=== PATIENT | female | born 1940 | race Caucasian/White ===

== ENCOUNTER 2017-07-17 18:00 | Observation (INO) | payer MEDICARE ==
[~2017-07-17] VITALS: Ht 170.2 cm; Wt 57.8 kg
[2017-07-17] MEDS ORDERED: SODIUM CHLORIDE FLUSH 10ML SYR IVF ONE (18:30)
[2017-07-17] MEDS ORDERED: MORPHINE SULFATE 4 MG/ML, 1ML IVPush PRN (18:30)
[2017-07-17 18:52] LABS: BASOPHILS # (AUTO) 0.07 x10^3/uL (0-0.1); BASOPHILS % (AUTO) 1 % (0-1); EOSINOPHILS # (AUTO) 0.18 x10^3/uL (0-0.4); EOSINOPHILS % (AUTO) 3 % (1-7); LYMPHOCYTES # (AUTO) 2.31 x10^3/uL (1-3.4); LYMPHOCYTES % (AUTO) 33 % (22-44); MD NO; MEAN CORPUSCULAR HEMOGLOBIN 28.7 pg (27.0-34.8); MEAN CORPUSCULAR HGB CONC 32.9 g/dL (32.4-35.8); MEAN CORPUSCULAR VOLUME 87.2 fL (80-100); MEAN PLATELET VOLUME 8.9 fL (7.4-10.4); MONOCYTES # (AUTO) 0.56 x10^3/uL (0.2-0.8); MONOCYTES % (AUTO) 8 % (2-9); NEUTROPHILS # (AUTO) 3.92 x10^3/uL (1.8-6.8); NEUTROPHILS % (AUTO) 56 % (42-75); PLATELET COUNT 406 x10^3/uL (130-400); RED BLOOD COUNT 4.64 x10^6/uL (3.82-5.3); RED CELL DISTRIBUTION WIDTH 15.9 % (9.6-15.2)
[2017-07-17] MEDS ORDERED: HEPARIN 1,000 UNITS/ML, 30ML ONE (19:00)
[2017-07-17] MEDS ORDERED: THROMBIN 20,000 UNIT VIAL TP ONE ×2 (19:00→20:21)
[2017-07-17 19:01] LABS: INTERNATIONAL NORMALIZED RATIO 0.94 (0.93-1.1); PROTHROMBIN TIME 9.8 Seconds (9.6-11.5)
[2017-07-17] MEDS ORDERED: EPINEPHRINE 1 MG/ML, 1ML ONE (19:01)
[2017-07-17] MEDS ORDERED: BUPIVACAINE/PF 0.5% ONE (19:01)
[2017-07-17] MEDS ORDERED: PAPAVERINE 30 MG/ML, 2ML ONE (19:01)
[2017-07-17] MEDS ORDERED: FENTANYL PF 250 MCG/5ML ONE (19:03)
[2017-07-17] MEDS ORDERED: MIDAZOLAM 1 MG/ML, 2ML ONE (19:03)
[2017-07-17 19:05] LABS: ALANINE AMINOTRANSFERASE 15 U/L (12-78); ALBUMIN 3.2 g/dL (3.4-5.0); ANION GAP 3 mmol/L (5-15); CALCIUM 8.5 mg/dL (8.5-10.1); CHLORIDE 109 mmol/L (98-107); CREATININE 1.45 mg/dL (0.55-1.02)
[2017-07-17 19:07] LABS: ALKALINE PHOSPHATASE 87 U/L (45-117); BILIRUBIN,TOTAL 0.5 mg/dL (0.2-1.0); TOTAL PROTEIN 8.3 g/dL (6.4-8.2)
[2017-07-17] MEDS ORDERED: BACITRACIN 50,000 UNIT ONE (19:21)
[2017-07-17] MEDS ORDERED: ONDANSETRON 2MG/ML, 2ML ONE (19:38)
[2017-07-17] MEDS ORDERED: CEFAZOLIN 1,000 MG ONE (19:38)
[2017-07-17] MEDS ORDERED: PROPOFOL 10 MG/ML, 20ML ONE (19:38)
[2017-07-17] MEDS ORDERED: ROCURONIUM 10 MG/ML,10ML ONE (19:38)
[2017-07-17] MEDS ORDERED: VISIPAQUE 270 MG/ML, 50ML BOTTLE IV ONE ×2 (19:40→20:46)
[2017-07-17] MEDS ORDERED: HEPARIN 1,000 UNITS/ML, 30ML IVPush ONE (20:26)
[2017-07-17] MEDS ORDERED: PROTAMINE SULFATE 10 MG/ML, 5ML ONE (21:50)
[2017-07-17] MEDS ORDERED: hydrALAzine 20 MG/ML, 1ML ONE (22:24)
[2017-07-17] MEDS ORDERED: OXYcodone 5 MG/5 ML ORAL.SOL UDC ONE (22:24)
[2017-07-17] MEDS ORDERED: LABETALOL 5MG/ML, 20ML ONE (22:24)
[2017-07-17] MEDS ORDERED: HYDROcodone/APAP 5/325 TABLET PO PRN (22:30)
[2017-07-17] MEDS ORDERED: ONDANSETRON 2MG/ML, 2ML IVPush PRN ×2 (22:30)
[2017-07-17] MEDS ORDERED: LABETALOL 5MG/ML, 20ML IV PRN (22:30)
[2017-07-17] MEDS ORDERED: FENTANYL PF 100 MCG/2ML IV PRN (22:30)
[2017-07-17] MEDS ORDERED: OXYcodone 5 MG/5 ML ORAL.SOL UDC PO PRN (22:30)
[2017-07-17] MEDS ORDERED: hydrALAzine 20 MG/ML, 1ML IV PRN (22:30)
[2017-07-17] MEDS ORDERED: morphine SULFATE 10 MG/ML, 1ML IV PRN (22:30)
[2017-07-17] MEDS ORDERED: MEPERIDINE/PF 50 MG/ML ONE (23:04)
[2017-07-17] MEDS ORDERED: MEPERIDINE/PF 25MG/0.5ML IVPush PRN (23:30)
[2017-07-17 23:55] VITALS: BP 133/76
[2017-07-18 00:36] VITALS: BP 133/76
[2017-07-18] MEDS: D5%-LR+KCL 20MEQ 1,000 ML IV SCH ×2 (01:25→10:30)
[2017-07-18 02:00] VITALS: BP 131/55
[2017-07-18] MEDS: CEFAZOLIN PMX 1GM/50ML 50 ML IVPB SCH ×2 (03:02→11:20)
[2017-07-18 05:37] LABS: BASOPHILS # (AUTO) 0.06 x10^3/uL (0-0.1); BASOPHILS % (AUTO) 1 % (0-1); EOSINOPHILS # (AUTO) 0.18 x10^3/uL (0-0.4); EOSINOPHILS % (AUTO) 3 % (1-7); LYMPHOCYTES # (AUTO) 1.52 x10^3/uL (1-3.4); LYMPHOCYTES % (AUTO) 22 % (22-44); MD NO; MEAN CORPUSCULAR HEMOGLOBIN 30.3 pg (27.0-34.8); MEAN CORPUSCULAR HGB CONC 33.8 g/dL (32.4-35.8); MEAN CORPUSCULAR VOLUME 89.6 fL (80-100); MEAN PLATELET VOLUME 9.4 fL (7.4-10.4); MONOCYTES # (AUTO) 0.69 x10^3/uL (0.2-0.8); MONOCYTES % (AUTO) 10 % (2-9); NEUTROPHILS # (AUTO) 4.37 x10^3/uL (1.8-6.8); NEUTROPHILS % (AUTO) 64 % (42-75); PLATELET COUNT 275 x10^3/uL (130-400); RED BLOOD COUNT 3.24 x10^6/uL (3.82-5.3); RED CELL DISTRIBUTION WIDTH 15.9 % (9.6-15.2)
[2017-07-18 05:55] LABS: ALBUMIN 2.2 g/dL (3.4-5.0); ANION GAP 4 mmol/L (5-15); CALCIUM 7.6 mg/dL (8.5-10.1); CHLORIDE 112 mmol/L (98-107)
[2017-07-18 05:57] LABS: CREATININE 1.21 mg/dL (0.55-1.02)
[2017-07-18] MEDS ORDERED: ASPIRIN 325 MG TABLET EC PO SCH (06:00)
[2017-07-18 06:52] VITALS: BP 121/86
[2017-07-18 14:21] VITALS: BP 121/86
[2017-07-18] MEDS ORDERED: HYDR-3237 PO (17:19)
[2017-07-18 19:04] VITALS: BP 130/67
== END 2017-07-18 19:14 | disposition home or self-care (01) ==
LOC: ED 19:02 → EDIP 23:34 → 4NOR 07-18 00:06
PROVIDERS: ADMIT Internal Medicine; ATTEND Internal Medicine
DX: I99.8 Other disorder of circulatory system (principal); I73.9 Peripheral vascular disease, unspecified; I74.5 Embolism and thrombosis of iliac artery; I10 Essential (primary) hypertension; E03.9 Hypothyroidism, unspecified; Z87.891 Personal history of nicotine dependence
CPT/HCPCS: 35302; 35351; 36415; 75710; 80048; 80053; 82040; 85025; 85610; 85730; 86850; 86900; 93005; 96365; 96375; 99285; C1729; C1757; C1781; G0378; J0171; J0690; J1644; J2175; J2250; J2405; J2440; J2704; J2720; J3010; J3480; J3490; Q9966

== ENCOUNTER 2018-02-07 11:24 | Day surgery (SDC) | payer MEDICARE ==
[~2018-02-07] VITALS: Ht 170.2 cm; Wt 58.3 kg
[~2018-02-07 11:24] MED LIST: ASPI-515 PO; CLOP75TA PO; ESCI10TA PO; GABA300C10 PO; HYDR-3237 PO; LEVO175T5 PO
[2018-02-07] MEDS ORDERED: D5%-0.45% NACL 1,000 ML IV SCH (11:42)
[2018-02-07] MEDS ORDERED: PLEASE ENTER HEIGHT AND WEIGHT MC SCH (12:00)
[2018-02-07 12:54] VITALS: BP 161/78
[2018-02-07 12:56] LABS: BASOPHILS # (AUTO) 0.08 x10^3/uL (0-0.1); BASOPHILS % (AUTO) 1 % (0-1); EOSINOPHILS # (AUTO) 0.36 x10^3/uL (0-0.4); EOSINOPHILS % (AUTO) 6 % (1-7); LYMPHOCYTES # (AUTO) 1.94 x10^3/uL (1-3.4); LYMPHOCYTES % (AUTO) 31 % (22-44); MD NO; MEAN CORPUSCULAR HEMOGLOBIN 27.8 pg (27.0-34.8); MEAN CORPUSCULAR HGB CONC 32.9 g/dL (32.4-35.8); MEAN CORPUSCULAR VOLUME 84.5 fL (80-100); MEAN PLATELET VOLUME 9.4 fL (7.4-10.4); MONOCYTES # (AUTO) 0.59 x10^3/uL (0.2-0.8); MONOCYTES % (AUTO) 10 % (2-9); NEUTROPHILS # (AUTO) 3.23 x10^3/uL (1.8-6.8); NEUTROPHILS % (AUTO) 52 % (42-75); PLATELET COUNT 247 x10^3/uL (130-400); RED BLOOD COUNT 4.71 x10^6/uL (3.82-5.3); RED CELL DISTRIBUTION WIDTH 17.7 % (9.6-15.2)
[2018-02-07] MEDS ORDERED: VISIPAQUE 270 MG/ML, 50ML BOTTLE ONE (13:00)
[2018-02-07] MEDS ORDERED: LIDOCAINE/PF 1%, 30ML ONE (13:02)
[2018-02-07 13:08] LABS: ALANINE AMINOTRANSFERASE 12 U/L (12-78); ANION GAP 6 mmol/L (5-15); CALCIUM 8.9 mg/dL (8.5-10.1); CHLORIDE 111 mmol/L (98-107); CREATININE 1.35 mg/dL (0.55-1.02)
[2018-02-07 13:10] LABS: ALKALINE PHOSPHATASE 80 U/L (45-117); BILIRUBIN,TOTAL 0.3 mg/dL (0.2-1.0); TOTAL PROTEIN 7.4 g/dL (6.4-8.2)
[2018-02-07] MEDS ORDERED: NALOXONE 1 MG/ML, 2ML ONE (13:38)
[2018-02-07] MEDS ORDERED: HEPARIN 5,000 UNITS/ML, 1ML ONE (13:38)
[2018-02-07] MEDS ORDERED: FLUMAZENIL 0.1 MG/1 ML, 5ML ONE (13:38)
[2018-02-07] MEDS ORDERED: FENTANYL PF 100 MCG/2ML ONE (13:38)
[2018-02-07] MEDS ORDERED: MIDAZOLAM 1 MG/ML, 5ML ONE (13:38)
[2018-02-07] MEDS ORDERED: PROTAMINE SULFATE 10 MG/ML, 25ML ONE (13:39)
[2018-02-07] MEDS ORDERED: SODIUM CHLORIDE 0.9% 1,000 ML IV SCH (14:51)
== END 2018-02-07 17:45 | disposition home or self-care (01) ==
LOC: OUT 11:24
PROVIDERS: ATTEND Surgery
DX: I70.212 Atherosclerosis of native arteries of extremities with intermittent claudication, left leg (principal); F41.9 Anxiety disorder, unspecified; E03.9 Hypothyroidism, unspecified; F17.210 Nicotine dependence, cigarettes, uncomplicated; Z79.82 Long term (current) use of aspirin; Z98.890 Other specified postprocedural states; Z79.899 Other long term (current) drug therapy
CPT/HCPCS: 36246; 36415; 75710; 80053; 85025; 99156; C1751; C1769; C1894; J1644; J2250; J3010; J3490; Q9966; J2720; J2310

== ENCOUNTER 2018-03-14 11:22 | Inpatient (IN) | payer MEDICARE ==
[~2018-03-14] VITALS: Ht 170.2 cm; Wt 64.1 kg
[~2018-03-14 11:22] MED LIST changes: +LISI-167 PO
[2018-03-14] MEDS ORDERED: LACTATED RINGERS 1,000 ML IV SCH (12:42)
[2018-03-14] MEDS ORDERED: MIDAZOLAM 1 MG/ML, 2ML ONE (13:06)
[2018-03-14] MEDS ORDERED: FENTANYL PF 250 MCG/5ML ONE (13:06)
[2018-03-14] MEDS ORDERED: WATER-INJECTION,STERILE 10 ML IV ONE (13:08)
[2018-03-14] MEDS ORDERED: PROPOFOL 10 MG/ML, 20ML ONE (13:09)
[2018-03-14] MEDS ORDERED: LIDOCAINE-MPF 2% ,5ML ONE (13:09)
[2018-03-14] MEDS ORDERED: CEFAZOLIN 1,000 MG ONE ×2 (13:09)
[2018-03-14] MEDS ORDERED: ONDANSETRON 2MG/ML, 2ML ONE (13:10)
[2018-03-14] MEDS ORDERED: DEXAMETHASONE 4 MG/ML, 1ML ONE ×2 (13:10)
[2018-03-14] MEDS ORDERED: REMIFENTANIL 1 MG ONE (13:12)
[2018-03-14] MEDS ORDERED: THROMBIN 20,000 UNIT VIAL TP ONE (14:09)
[2018-03-14] MEDS ORDERED: HEPARIN 1,000 UNITS/ML, 10ML ONE (14:09)
[2018-03-14] MEDS ORDERED: HEPARIN 1,000 UNITS/ML, 30ML ONE (14:10)
[2018-03-14] MEDS ORDERED: PROTAMINE SULFATE 10 MG/ML, 5ML ONE (14:10)
[2018-03-14] MEDS ORDERED: ROCURONIUM 10 MG/ML,10ML ONE (15:04)
[2018-03-14] MEDS ORDERED: PHENYLEPHRINE 10 MG/ML ONE (15:04)
[2018-03-14] MEDS ORDERED: VISIPAQUE 270 MG/ML, 50ML BOTTLE ONE (18:05)
[2018-03-14] MEDS ORDERED: POTASSIUM CHLORIDE 20 MEQ in D5%-0.45% NACL 1,000 ML IV SCH (18:39)
[2018-03-14] MEDS ORDERED: HYDROmorphone 1 MG/ML, 1ML IV PRN (19:00)
[2018-03-14] MEDS ORDERED: FENTANYL PF 100 MCG/2ML IV PRN (19:00)
[2018-03-14] MEDS ORDERED: ACETAMINOPHEN 650 MG/20.3 ML UDC PO PRN (19:00)
[2018-03-14] MEDS ORDERED: hydrALAzine 20 MG/ML, 1ML IV PRN (19:00)
[2018-03-14] MEDS ORDERED: HALOPERIDOL 5 MG/ML IV PRN (19:00)
[2018-03-14] MEDS ORDERED: ALBUTEROL/IPRATROPIUM 2.5MG/0.5MG, 3 ML NPPB PRN (19:00)
[2018-03-14] MEDS ORDERED: MEPERIDINE/PF 25MG/0.5ML IVPush PRN (19:00)
[2018-03-14] MEDS ORDERED: PROMETHAZINE 25 MG/ML, 1ML IV PRN (19:00)
[2018-03-14] MEDS ORDERED: OXYcodone 5 MG/5 ML ORAL.SOL UDC PO PRN (19:00)
[2018-03-14] MEDS ORDERED: LORazepam 2 MG/ML, 1ML IVPush PRN (19:00)
[2018-03-14] MEDS ORDERED: morphine SULFATE 10 MG/ML, 1ML IV PRN (19:00)
[2018-03-14] MEDS ORDERED: ACETAMINOPHEN 325 MG TABLET PO PRN (19:00)
[2018-03-14] MEDS ORDERED: LABETALOL 5MG/ML, 20ML IV PRN (19:00)
[2018-03-14] MEDS ORDERED: ONDANSETRON 2MG/ML, 2ML IVPush PRN (19:00)
[2018-03-14] MEDS ORDERED: hydrALAzine 20 MG/ML, 1ML ONE (19:13)
[2018-03-14] MEDS ORDERED: OXYcodone 5 MG/5 ML ORAL.SOL UDC ONE (19:13)
[2018-03-14] MEDS ORDERED: MEPERIDINE/PF 50 MG/ML ONE (19:19)
[2018-03-14] MEDS: ENOXAPARIN 40 MG/0.4 ML SQ SCH (21:14)
[2018-03-14] MEDS: CEFAZOLIN PMX 1GM/50ML 50 ML IVPB SCH (23:40)
[2018-03-15 04:22] LABS: BASOPHILS # (AUTO) 0.01 x10^3/uL (0-0.1); BASOPHILS % (AUTO) 0 % (0-1); EOSINOPHILS % (AUTO) 0 % (1-7); LYMPHOCYTES # (AUTO) 0.93 x10^3/uL (1-3.4); LYMPHOCYTES % (AUTO) 14 % (22-44); MD NO; MEAN CORPUSCULAR HEMOGLOBIN 27.5 pg (27.0-34.8); MEAN CORPUSCULAR HGB CONC 31.9 g/dL (32.4-35.8); MEAN CORPUSCULAR VOLUME 86.2 fL (80-100); MEAN PLATELET VOLUME 9.3 fL (7.4-10.4); MONOCYTES % (AUTO) 6 % (2-9); NEUTROPHILS # (AUTO) 5.17 x10^3/uL (1.8-6.8); NEUTROPHILS % (AUTO) 79 % (42-75); PLATELET COUNT 220 x10^3/uL (130-400); RED BLOOD COUNT 3.54 x10^6/uL (3.82-5.3); RED CELL DISTRIBUTION WIDTH 16.8 % (9.6-15.2)
[2018-03-15 04:30] VITALS: BP 115/45
[2018-03-15 04:32] LABS: ALBUMIN 2.2 g/dL (3.4-5.0); ANION GAP 6 mmol/L (5-15); CALCIUM 8.3 mg/dL (8.5-10.1); CHLORIDE 110 mmol/L (98-107); CREATININE 1.25 mg/dL (0.55-1.02)
[2018-03-15] MEDS: CEFAZOLIN PMX 1GM/50ML 50 ML IVPB SCH ×2 (07:46→09:04)
[2018-03-15] MEDS: CLOPIDOGREL 75 MG TABLET PO SCH (08:08)
[2018-03-15] MEDS: ENOXAPARIN 40 MG/0.4 ML SQ SCH (08:09)
[2018-03-15] MEDS: LISINOPRIL 10 MG TABLET PO SCH (09:00)
[2018-03-15] MEDS: ASPIRIN 81 MG TABLET EC PO SCH (09:21)
[2018-03-15] MEDS: LEVOTHYROXINE 175 MCG TABLET PO SCH (09:21)
[2018-03-15 13:48] LABS: BASOPHILS # (AUTO) 0.05 x10^3/uL (0-0.1); BASOPHILS % (AUTO) 1 % (0-1); EOSINOPHILS # (AUTO) 0.01 x10^3/uL (0-0.4); EOSINOPHILS % (AUTO) 0 % (1-7); LYMPHOCYTES # (AUTO) 1.68 x10^3/uL (1-3.4); LYMPHOCYTES % (AUTO) 20 % (22-44); MD NO; MEAN CORPUSCULAR HEMOGLOBIN 28.3 pg (27.0-34.8); MEAN CORPUSCULAR HGB CONC 32.9 g/dL (32.4-35.8); MEAN CORPUSCULAR VOLUME 85.8 fL (80-100); MEAN PLATELET VOLUME 9.3 fL (7.4-10.4); MONOCYTES # (AUTO) 0.84 x10^3/uL (0.2-0.8); MONOCYTES % (AUTO) 10 % (2-9); NEUTROPHILS % (AUTO) 70 % (42-75); PLATELET COUNT 224 x10^3/uL (130-400); RED BLOOD COUNT 3.37 x10^6/uL (3.82-5.3); RED CELL DISTRIBUTION WIDTH 16.8 % (9.6-15.2)
[2018-03-15 13:56] LABS: ALBUMIN 2.3 g/dL (3.4-5.0); ANION GAP 5 mmol/L (5-15); CHLORIDE 110 mmol/L (98-107); CREATININE 1.19 mg/dL (0.55-1.02)
[2018-03-15 18:30] VITALS: BP 121/81
[2018-03-15 19:33] VITALS: BP 136/53
[2018-03-16 00:50] VITALS: BP 94/49
[2018-03-16 04:10] VITALS: BP 97/58
[2018-03-16 07:53] VITALS: BP 136/60
[2018-03-16] MEDS: ASPIRIN 81 MG TABLET EC PO SCH (07:54)
[2018-03-16] MEDS: CLOPIDOGREL 75 MG TABLET PO SCH (07:54)
[2018-03-16] MEDS: LEVOTHYROXINE 175 MCG TABLET PO SCH (07:54)
[2018-03-16] MEDS: LISINOPRIL 10 MG TABLET PO SCH (07:55)
[2018-03-16] MEDS ORDERED: ENOXAPARIN 40 MG/0.4 ML SQ SCH (08:00)
[2018-03-16] MEDS ORDERED: CLOP75TA PO (15:22)
[2018-03-16] MEDS ORDERED: HYDR-3241 PO (15:22)
[2018-03-16 16:05] VITALS: BP 132/60
== END 2018-03-16 17:00 | disposition home or self-care (01) | DRG 252 ==
LOC: ORIP 11:22 → CCU 20:21 → 4NOR 03-15 18:07
PROVIDERS: ADMIT Surgery; ATTEND Surgery
PROC: 041L0JJ Bypass Left Femoral Artery to Left Femoral Artery with Synthetic Substitute, Open Approach (ICD-10-PCS; 2018-03-14)
PROC: 04CL0ZZ Extirpation of Matter from Left Femoral Artery, Open Approach (ICD-10-PCS; 2018-03-14)
PROC: B41G1ZZ Fluoroscopy of Left Lower Extremity Arteries using Low Osmolar Contrast (ICD-10-PCS; 2018-03-14)
PROC: 041L0JL Bypass Left Femoral Artery to Popliteal Artery with Synthetic Substitute, Open Approach (ICD-10-PCS; principal; 2018-03-14 14:00)
DX: T82.392A Other mechanical complication of femoral arterial graft (bypass), initial encounter (principal); E43 Unspecified severe protein-calorie malnutrition; T82.868A Thrombosis due to vascular prosthetic devices, implants and grafts, initial encounter; I70.202 Unspecified atherosclerosis of native arteries of extremities, left leg; I99.8 Other disorder of circulatory system; I10 Essential (primary) hypertension; E03.9 Hypothyroidism, unspecified; J44.9 Chronic obstructive pulmonary disease, unspecified; Z79.02 Long term (current) use of antithrombotics/antiplatelets; Z79.82 Long term (current) use of aspirin; Z79.890 Hormone replacement therapy; Z79.899 Other long term (current) drug therapy
CPT/HCPCS: 36415; 71045; 75710; 80048; 82040; 85025; 86850; 86900; 87081; 93005; G0378; J0690; J1100; J1644; J1650; J2175; J2250; J2405; J2704; J2720; J3010; J3480; J3490; Q9966; J0360; J2270; J2370; J7120

== ENCOUNTER 2019-09-29 08:48 | Emergency (ER) | payer MEDICARE ==
[~2019-09-29] VITALS: Ht 165.1 cm; Wt 80.0 kg
[~2019-09-29 08:48] MED LIST changes: +HYDR-3241 PO
[2019-09-29] MEDS ORDERED: CODE BLUE RESPONSE XX ONE (10:00)
[2019-09-29] MEDS ORDERED: SODIUM BICARB 8.4%, 50ML SYRINGE IVPush ONE (10:00)
[2019-09-29] MEDS ORDERED: EPINEPHRINE SYRINGE 0.1 MG/ML, 10ML IVPush ONE (10:00)
--- NOTE | 2019-09-29 10:34 | NUR ---
PT BIB CARE FLIGHT, IFT FROM [facility]. PT WAS INTUBATED IN [place] ER FOR R/O PNEUMONIA, ON VENTILATOR. DURING FLIGHT, PT SUDDENLY HAD A DECREASED ETCO2 AND BECAME PULSELESS. CPR INTIATED IN FLIGHT, IT WAS NOTED PT IN A P.E.A RHYTHM PER FLIGHT CREW. EPI IV X4 DOSES GIVEN BY FLIGHT RN AND ELECTRONIC WARFARE TECHNICIAN MIGRATORY WORKER. CPR ADMINISTERED FOR APPROX 15 MIN MIGRATORY WORKER. ONCE CF LANDED, CREW MET ON ROOF BY RECOVERY OPERATOR HELPER X2 WELL FRENCH BINDER. PT MOVED TO TRANSPORT [facility] AND CPR CONTINUED BY FRENCH BINDER. PT REMAINED ON TRANSPORT MONITOR WHILE IN TRANSPORT TO ER. ONCE TO ER, PT WAS BROUGHT TO ER RM 41, DR. CAR AT BEDSIDE WELL RT AND PHARMACY. CPR CONTINUED AND PT PLACED ON ER ZOLL MONITOR. EPI 1MG IV GIVEN AT 0852 PER SHANNAN CAR VERBAL BEDSIDE ORDER. 1 AMP BICARD GIVEN AT 0853 PER SHANNAN CAR VERBAL ORDER. CPR CONTINUED AND PT NOTED TO REMAIN IN PEA RHYTHM. DR. CAR APPLIED BEDSIDE ULTRSOUND TO MONITOR FOR CARDIAC ACTIVITY. NO CARDIAC ACTIVITY NOTED BY DR. CAR. CODE COMPLETED AT 0854, TIME OF NOTED AT 0854.
== END 2019-09-29 11:55 | disposition expired ==
LOC: ED 08:52
DX: I46.9 Cardiac arrest, cause unspecified (principal); J18.9 Pneumonia, unspecified organism; J96.00 Acute respiratory failure, unspecified whether with hypoxia or hypercapnia; R50.9 Fever, unspecified; I10 Essential (primary) hypertension; F17.200 Nicotine dependence, unspecified, uncomplicated; Z90.49 Acquired absence of other specified parts of digestive tract; Z99.11 Dependence on respirator [ventilator] status
CPT/HCPCS: 31500; 92950; 99285